=== PATIENT | female | born 1960 | race Caucasian/White ===

== ENCOUNTER 2023-12-13 03:46 | Inpatient (IN) | payer OTHER, BC ==
[2023-12-13 05:48] LABS: VENOUS BASE EXCESS -4.1 mmol/L (-2-2); VENOUS O2 SATURATION 73.3 % (70-80); VENOUS PCO2 37.4 mmHg (38-52); VENOUS PH 7.365 (7.310-7.410)
[2023-12-13 05:56] LABS: EPI CELLS 10 /uL (0-25.1); HYALINE CASTS 0 /uL (0-3.1); PH,URINE 6.5 (5.0-8.0); URINE APPEARANCE CLEAR; URINE BACTERIA 14 /uL (0-1359); URINE BILIRUBIN NEGATIVE (NEGATIVE); URINE COLOR YELLOW; URINE GLUCOSE (UA) NEGATIVE (NEGATIVE); URINE KETONE NEGATIVE (NEGATIVE); URINE LEUK ESTERASE TRACE (NEGATIVE); URINE NITRITE NEGATIVE (NEGATIVE); URINE PROTEIN NEGATIVE (NEGATIVE); URINE RBC 10 /uL (0-23.9); URINE UROBILINOGEN 0.2 mg/dL (0.2-1.0); URINE WBC 12 /uL (0-25.8)
[2023-12-13 06:03] LABS: INR 1.33 (0.83-1.09); PROTHROMBIN TIME (PATIENT) 15.4 SEC (9.7-13.0)
[2023-12-13 06:05] LABS: HEMATOCRIT 23.2 % (32.4-45.2); HEMOGLOBIN 7.8 GM/dL (10.7-15.3); MCH 34.2 pg (25.7-33.7); MCHC 33.7 g/dl (32.0-36.0); MEAN CELL VOLUME 101.5 fl (80-96); MEAN PLT VOLUME 7.5 fl (7.5-11.1); PLATELET COUNT 71 10^3/uL (134-434); RBC 2.28 M/mm3 (3.60-5.2); RDW 22.1 % (11.6-15.6)
[2023-12-13 06:06] LABS: ACTIVATED PTT 32.3 SECONDS (25.2-36.5)
[2023-12-13 06:18] LABS: WHITE BLOOD COUNT 1.6 K/mm3 (4.0-10.0)
[2023-12-13] MEDS ORDERED: ACETAMINOPHEN INJECTION 100 ML IVPB ONE (06:48)
[2023-12-13] MEDS: ACETAMINOPHEN 1000 MG/100 ML BAG IVPB ONE (06:56)
[2023-12-13] MEDS: SODIUM CHLORIDE 0.9% 500 ML INFUS.BAG IV ONE (06:56)
[2023-12-13 08:27] LABS: POTASSIUM 4.2 mmol/L (3.5-5.1)
[2023-12-13 08:28] LABS: CALCIUM 8.7 mg/dL (8.5-10.1)
[2023-12-13 08:30] LABS: ALBUMIN 2.1 g/dl (3.4-5.0)
[2023-12-13 08:33] LABS: CREATININE 0.7 mg/dL (0.55-1.3)
[2023-12-13 08:34] LABS: TOT PROT 7.8 g/dl (6.4-8.2)
[2023-12-13 08:36] LABS: BILIRUBIN,TOTAL 0.6 mg/dL (0.2-1)
[2023-12-13 08:41] LABS: ANISOCYTOSIS 1+; MACROCYTOSIS 1+
[2023-12-13] MEDS ORDERED: PIPERACILLIN/TAZOB 4.5 GM 4.5 GM/100 ML BAG IVPB ONE (09:41)
[2023-12-13] MEDS: PIPERACILLIN/TAZOB 4.5 GM 4.5 GM in DEXTROSE 5%-WATER 100 ML IVPB ONE (10:57)
[2023-12-13] MEDS: DEXTROSE 5%-0.45% SALINE 1,000 ML IV SCH (18:21)
[2023-12-13] MEDS: PIPERACILLIN/TAZOB 3.375 GM 3.375 GM in DEXTROSE 5%-WATER - 50 ML IVPB SCH (18:22)
[2023-12-14 09:36] LABS: HEMATOCRIT 21.7 % (32.4-45.2); MCH 33.2 pg (25.7-33.7); MCHC 32.4 g/dl (32.0-36.0); MEAN CELL VOLUME 102.5 fl (80-96); MEAN PLT VOLUME 7.6 fl (7.5-11.1); PLATELET COUNT 78 10^3/uL (134-434); RBC 2.12 M/mm3 (3.60-5.2); RDW 22.2 % (11.6-15.6)
[2023-12-14 09:41] LABS: WHITE BLOOD COUNT 1.5 K/mm3 (4.0-10.0)
[2023-12-14 09:46] LABS: POTASSIUM 3.2 mmol/L (3.5-5.1)
[2023-12-14 09:54] LABS: CALCIUM 8.4 mg/dL (8.5-10.1)
[2023-12-14 09:58] LABS: CREATININE 0.8 mg/dL (0.55-1.3); TOT PROT 6.9 g/dl (6.4-8.2)
[2023-12-14 09:59] LABS: BILIRUBIN,TOTAL 0.4 mg/dL (0.2-1)
[2023-12-14 10:40] LABS: ANISOCYTOSIS 3+; MACROCYTOSIS 1+
[2023-12-14] MEDS: TBO-FILGRASTIM 300 MCG/0.5 ML DISP.SYRINGE SQ ONE (11:59)
[2023-12-14] MEDS: ACETAMINOPHEN 325 MG TABLET (FP) PO PRN (15:56)
[2023-12-15 08:55] LABS: HEMATOCRIT 23.4 % (32.4-45.2); HEMOGLOBIN 7.6 GM/dL (10.7-15.3); MCH 33.7 pg (25.7-33.7); MCHC 32.4 g/dl (32.0-36.0); MEAN CELL VOLUME 103.9 fl (80-96); MEAN PLT VOLUME 8.1 fl (7.5-11.1); PLATELET COUNT 82 10^3/uL (134-434); RBC 2.25 M/mm3 (3.60-5.2); RDW 23.1 % (11.6-15.6); WHITE BLOOD COUNT 2.4 K/mm3 (4.0-10.0)
[2023-12-15 09:20] LABS: CALCIUM 8.7 mg/dL (8.5-10.1)
[2023-12-15 09:21] LABS: BLOOD UREA NITROGEN 13.4 mg/dL (7-18)
[2023-12-15 09:24] LABS: CREATININE 0.7 mg/dL (0.55-1.3)
[2023-12-15 09:25] LABS: BILIRUBIN,TOTAL 0.4 mg/dL (0.2-1)
[2023-12-15 09:26] LABS: TOT PROT 7.1 g/dl (6.4-8.2)
[2023-12-15] MEDS: ASCORBIC ACID 250 MG TABLET (FP) PO SCH (09:53)
[2023-12-15] MEDS: MULTIVITAMINS (DAILY MVI) TABLET (FP) PO SCH (09:53)
[2023-12-15 10:39] LABS: ANISOCYTOSIS 2+; MACROCYTOSIS 1+
[2023-12-15] MEDS: TBO-FILGRASTIM 300 MCG/0.5 ML DISP.SYRINGE SQ ONE ×2 (14:04→15:15)
[2023-12-15] MEDS: DOCUSATE SODIUM 100 MG CAPSULE (FP) PO SCH (21:44)
[2023-12-16 10:03] LABS: HEMATOCRIT 22.2 % (32.4-45.2); HEMOGLOBIN 7.3 GM/dL (10.7-15.3); MCH 34.2 pg (25.7-33.7); MEAN CELL VOLUME 103.5 fl (80-96); MEAN PLT VOLUME 8.3 fl (7.5-11.1); PLATELET COUNT 87 10^3/uL (134-434); RBC 2.15 M/mm3 (3.60-5.2); RDW 22.6 % (11.6-15.6)
[2023-12-16 10:07] LABS: WHITE BLOOD COUNT 1.7 K/mm3 (4.0-10.0)
[2023-12-16 10:28] LABS: POTASSIUM 3.6 mmol/L (3.5-5.1)
[2023-12-16 10:32] LABS: BLOOD UREA NITROGEN 11.2 mg/dL (7-18); CALCIUM 8.7 mg/dL (8.5-10.1)
[2023-12-16 10:33] LABS: ALBUMIN 1.9 g/dl (3.4-5.0)
[2023-12-16 10:35] LABS: CREATININE 0.7 mg/dL (0.55-1.3)
[2023-12-16 10:38] LABS: TOT PROT 6.9 g/dl (6.4-8.2)
[2023-12-16 10:39] LABS: BILIRUBIN,TOTAL 0.4 mg/dL (0.2-1)
[2023-12-16 11:32] LABS: ANISOCYTOSIS 0; HELMET CELLS 0; HOWELL-JOLLY BODIES 0; MACROCYTOSIS 0; OVALOCYTE 0; ROULEAU 0; SICKELED CELLS 0; TARGET CELLS 0; TEAR DROP CELLS 0; TOXIC GRANULATION 0
[2023-12-16] MEDS: TBO-FILGRASTIM 300 MCG/0.5 ML DISP.SYRINGE SQ ONE (17:31)
[2023-12-16] MEDS: AMINO ACIDS/PROTEIN HYDROLYS 30 ML LIQUID.PKT PO SCH (17:47)
[2023-12-16 23:59] VITALS: BMI 21.6
[2023-12-17] MEDS: SODIUM CHLORIDE 250 ML IV STA (06:02)
[2023-12-17 08:35] LABS: CREATININE 0.7 mg/dL (0.55-1.3)
[2023-12-17 08:36] LABS: BLOOD UREA NITROGEN 14.9 mg/dL (7-18); CALCIUM 9.2 mg/dL (8.5-10.1)
[2023-12-17 08:37] LABS: BILIRUBIN,TOTAL 0.5 mg/dL (0.2-1); TOT PROT 7.2 g/dl (6.4-8.2)
[2023-12-17 08:42] LABS: HEMATOCRIT 23.8 % (32.4-45.2); HEMOGLOBIN 7.8 GM/dL (10.7-15.3); MCH 34.1 pg (25.7-33.7); MCHC 32.9 g/dl (32.0-36.0); MEAN CELL VOLUME 103.6 fl (80-96); MEAN PLT VOLUME 8.5 fl (7.5-11.1); PLATELET COUNT 92 10^3/uL (134-434); RDW 23.4 % (11.6-15.6)
[2023-12-17 09:02] LABS: WHITE BLOOD COUNT 1.6 K/mm3 (4.0-10.0)
[2023-12-17] MEDS: POLYETHYLENE GLYCOL (HEALTHYLAX) 3350 17 GM PACKET PO SCH (17:41)
[2023-12-17] MEDS: TBO-FILGRASTIM 300 MCG/0.5 ML DISP.SYRINGE SQ SCH (22:28)
[2023-12-18] MEDS ORDERED: TBO-FILGRASTIM 300 MCG/0.5 ML DISP.SYRINGE SQ SCH (11:30)
[2023-12-18 12:07] LABS: HEMATOCRIT 25.5 % (32.4-45.2); HEMOGLOBIN 8.5 GM/dL (10.7-15.3); MCH 34.3 pg (25.7-33.7); MCHC 33.2 g/dl (32.0-36.0); MEAN CELL VOLUME 103.2 fl (80-96); MEAN PLT VOLUME 8.3 fl (7.5-11.1); PLATELET COUNT 100 10^3/uL (134-434); RBC 2.47 M/mm3 (3.60-5.2); RDW 23.2 % (11.6-15.6); WHITE BLOOD COUNT 2.7 K/mm3 (4.0-10.0)
[2023-12-18 12:42] LABS: POTASSIUM 4.6 mmol/L (3.5-5.1)
[2023-12-18 12:49] LABS: CALCIUM 8.6 mg/dL (8.5-10.1)
[2023-12-18 12:50] LABS: ALBUMIN 2.1 g/dl (3.4-5.0); BLOOD UREA NITROGEN 19.5 mg/dL (7-18)
[2023-12-18 12:53] LABS: CREATININE 0.7 mg/dL (0.55-1.3)
[2023-12-18 12:54] LABS: BILIRUBIN,TOTAL 0.5 mg/dL (0.2-1); TOT PROT 7.3 g/dl (6.4-8.2)
[2023-12-18 13:04] LABS: ANISOCYTOSIS 2+; MACROCYTOSIS 1+; TEAR DROP CELLS 1+
[2023-12-18] MEDS: VANCOMYCIN/WATER FOR INJ (PEG) 1,000 MG/200 ML BAG IVPB SCH (15:16)
[2023-12-18] MEDS: TBO-FILGRASTIM 300 MCG/0.5 ML DISP.SYRINGE SQ SCH (15:16)
[2023-12-19 09:33] LABS: HEMATOCRIT 24.9 % (32.4-45.2); HEMOGLOBIN 8.1 GM/dL (10.7-15.3); MCH 33.7 pg (25.7-33.7); MCHC 32.7 g/dl (32.0-36.0); MEAN CELL VOLUME 103.3 fl (80-96); MEAN PLT VOLUME 8.8 fl (7.5-11.1); PLATELET COUNT 86 10^3/uL (134-434); RBC 2.41 M/mm3 (3.60-5.2); RDW 23.4 % (11.6-15.6); WHITE BLOOD COUNT 2.8 K/mm3 (4.0-10.0)
[2023-12-19 10:04] LABS: CALCIUM 8.7 mg/dL (8.5-10.1)
[2023-12-19 10:05] LABS: BLOOD UREA NITROGEN 22.3 mg/dL (7-18)
[2023-12-19 10:08] LABS: CREATININE 0.8 mg/dL (0.55-1.3)
[2023-12-19 10:09] LABS: BILIRUBIN,TOTAL 0.5 mg/dL (0.2-1); TOT PROT 7.3 g/dl (6.4-8.2)
[2023-12-19 10:11] LABS: ANISOCYTOSIS 1+; MACROCYTOSIS 1+
[2023-12-20 08:00] LABS: HEMATOCRIT 24.8 % (32.4-45.2); HEMOGLOBIN 8.1 GM/dL (10.7-15.3); MCH 33.9 pg (25.7-33.7); MCHC 32.7 g/dl (32.0-36.0); MEAN CELL VOLUME 103.8 fl (80-96); MEAN PLT VOLUME 8.8 fl (7.5-11.1); PLATELET COUNT 72 10^3/uL (134-434); RBC 2.39 M/mm3 (3.60-5.2); RDW 23.1 % (11.6-15.6); WHITE BLOOD COUNT 2.8 K/mm3 (4.0-10.0)
[2023-12-20 08:29] LABS: POTASSIUM 4.2 mmol/L (3.5-5.1)
[2023-12-20 08:34] LABS: CALCIUM 8.9 mg/dL (8.5-10.1)
[2023-12-20 08:35] LABS: ALBUMIN 2.1 g/dl (3.4-5.0); BLOOD UREA NITROGEN 17.7 mg/dL (7-18)
[2023-12-20 08:38] LABS: CREATININE 0.5 mg/dL (0.55-1.3)
[2023-12-20 08:39] LABS: BILIRUBIN,TOTAL 0.4 mg/dL (0.2-1); TOT PROT 7.6 g/dl (6.4-8.2)
[2023-12-20 09:20] LABS: ANISOCYTOSIS 1+; MACROCYTOSIS 1+
[2023-12-21 09:55] LABS: HEMOGLOBIN 7.2 GM/dL (10.7-15.3); MCH 33.9 pg (25.7-33.7); MCHC 32.9 g/dl (32.0-36.0); MEAN PLT VOLUME 8.6 fl (7.5-11.1); PLATELET COUNT 62 10^3/uL (134-434); RBC 2.14 M/mm3 (3.60-5.2); WHITE BLOOD COUNT 2.6 K/mm3 (4.0-10.0)
[2023-12-21 10:11] LABS: POTASSIUM 3.4 mmol/L (3.5-5.1)
[2023-12-21 10:15] LABS: BLOOD UREA NITROGEN 16.8 mg/dL (7-18); CALCIUM 8.4 mg/dL (8.5-10.1)
[2023-12-21 10:17] LABS: ANISOCYTOSIS 0; MACROCYTOSIS 1+
[2023-12-21 10:19] LABS: CREATININE 0.7 mg/dL (0.55-1.3)
[2023-12-21 10:20] LABS: BILIRUBIN,TOTAL 0.4 mg/dL (0.2-1); TOT PROT 6.9 g/dl (6.4-8.2)
[2023-12-21] MEDS: POTASSIUM CHLORIDE ORAL LIQUID 20 MEQ/15 ML PO ONE (12:15)
[2023-12-21] MEDS: LINEZOLID 600 MG TABLET (RESTRICTED TO ID) PO SCH (13:15)
[2023-12-22 09:29] LABS: HEMATOCRIT 23.3 % (32.4-45.2); HEMOGLOBIN 7.6 GM/dL (10.7-15.3); MCH 33.6 pg (25.7-33.7); MCHC 32.7 g/dl (32.0-36.0); MEAN CELL VOLUME 102.8 fl (80-96); PLATELET COUNT 69 10^3/uL (134-434); RBC 2.27 M/mm3 (3.60-5.2); RDW 23.2 % (11.6-15.6); WHITE BLOOD COUNT 4.7 K/mm3 (4.0-10.0)
[2023-12-22 09:48] LABS: POTASSIUM 4.1 mmol/L (3.5-5.1)
[2023-12-22 10:03] LABS: CALCIUM 8.5 mg/dL (8.5-10.1)
[2023-12-22 10:04] LABS: ALBUMIN 2.2 g/dl (3.4-5.0); BLOOD UREA NITROGEN 15.5 mg/dL (7-18)
[2023-12-22 10:07] LABS: CREATININE 0.6 mg/dL (0.55-1.3)
[2023-12-22 10:08] LABS: BILIRUBIN,TOTAL 0.5 mg/dL (0.2-1); TOT PROT 7.2 g/dl (6.4-8.2)
[2023-12-22 10:35] LABS: ANISOCYTOSIS 2+; MACROCYTOSIS 2+
[2023-12-23 11:30] VITALS: RESP 18
[2023-12-25] MEDS: ACETAMINOPHEN 500 MG TABLET (FP) PO ONE (06:33)
[2023-12-25 09:13] LABS: HEMATOCRIT 23.8 % (32.4-45.2); HEMOGLOBIN 7.9 GM/dL (10.7-15.3); MCH 33.7 pg (25.7-33.7); MCHC 33.3 g/dl (32.0-36.0); MEAN CELL VOLUME 101.2 fl (80-96); MEAN PLT VOLUME 7.3 fl (7.5-11.1); PLATELET COUNT 75 10^3/uL (134-434); RBC 2.35 M/mm3 (3.60-5.2); RDW 22.6 % (11.6-15.6)
[2023-12-25 09:18] LABS: WHITE BLOOD COUNT 1.9 K/mm3 (4.0-10.0)
[2023-12-25 09:24] LABS: POTASSIUM 3.8 mmol/L (3.5-5.1)
[2023-12-25 09:28] LABS: ALBUMIN 2.2 g/dl (3.4-5.0); CALCIUM 8.4 mg/dL (8.5-10.1)
[2023-12-25 09:29] LABS: BLOOD UREA NITROGEN 17.2 mg/dL (7-18)
[2023-12-25 09:31] LABS: CREATININE 0.5 mg/dL (0.55-1.3)
[2023-12-25 09:33] LABS: BILIRUBIN,TOTAL 0.4 mg/dL (0.2-1); TOT PROT 7.7 g/dl (6.4-8.2)
[2023-12-25 11:01] LABS: ANISOCYTOSIS 3+; MACROCYTOSIS 1+
[2023-12-25] MEDS: TBO-FILGRASTIM 300 MCG/0.5 ML DISP.SYRINGE SQ ONE (14:42)
[2023-12-26] MEDS: MELATONIN 1 MG TABLET PO ONE (02:22)
[2023-12-26] MEDS ORDERED: IOHEXOL (OMNIPAQUE PO) 12 MG/ML - 500 ML BOTTLE PO ONE (12:11)
[2023-12-26 12:49] LABS: HEMOGLOBIN 7.3 GM/dL (10.7-15.3); MCH 33.8 pg (25.7-33.7); MEAN CELL VOLUME 102.4 fl (80-96); MEAN PLT VOLUME 7.1 fl (7.5-11.1); PLATELET COUNT 71 10^3/uL (134-434); RBC 2.15 M/mm3 (3.60-5.2); RDW 21.7 % (11.6-15.6); WHITE BLOOD COUNT 2.5 K/mm3 (4.0-10.0)
[2023-12-26 13:30] LABS: POTASSIUM 3.5 mmol/L (3.5-5.1)
[2023-12-26 13:32] LABS: BLOOD UREA NITROGEN 20.9 mg/dL (7-18); CALCIUM 8.4 mg/dL (8.5-10.1)
[2023-12-26 13:35] LABS: CREATININE 0.5 mg/dL (0.55-1.3)
[2023-12-26 13:37] LABS: BILIRUBIN,TOTAL 0.4 mg/dL (0.2-1); TOT PROT 7.3 g/dl (6.4-8.2)
[2023-12-27 10:09] LABS: HEMATOCRIT 21.3 % (32.4-45.2); MEAN PLT VOLUME 7.3 fl (7.5-11.1); PLATELET COUNT 75 10^3/uL (134-434); RBC 2.06 M/mm3 (3.60-5.2); RDW 22.1 % (11.6-15.6); WHITE BLOOD COUNT 2.3 K/mm3 (4.0-10.0)
[2023-12-27 10:22] LABS: POTASSIUM 3.6 mmol/L (3.5-5.1)
[2023-12-27 10:29] LABS: BLOOD UREA NITROGEN 18.3 mg/dL (7-18); CALCIUM 8.3 mg/dL (8.5-10.1)
[2023-12-27 10:32] LABS: CREATININE 0.6 mg/dL (0.55-1.3)
[2023-12-27 10:34] LABS: BILIRUBIN,TOTAL 0.4 mg/dL (0.2-1); TOT PROT 7.1 g/dl (6.4-8.2)
[2023-12-27 11:37] LABS: ANISOCYTOSIS 0; MACROCYTOSIS 0
[2023-12-27] MEDS: MELATONIN 1 MG TABLET PO PRN (22:35)
[2023-12-29 09:10] LABS: POTASSIUM 3.4 mmol/L (3.5-5.1)
[2023-12-29 09:13] LABS: HEMATOCRIT 21.6 % (32.4-45.2); HEMOGLOBIN 7.2 GM/dL (10.7-15.3); MCH 34.1 pg (25.7-33.7); MCHC 33.2 g/dl (32.0-36.0); MEAN CELL VOLUME 102.6 fl (80-96); MEAN PLT VOLUME 7.2 fl (7.5-11.1); PLATELET COUNT 74 10^3/uL (134-434); RBC 2.11 M/mm3 (3.60-5.2); RDW 22.3 % (11.6-15.6)
[2023-12-29 09:17] LABS: CALCIUM 8.6 mg/dL (8.5-10.1)
[2023-12-29 09:18] LABS: ALBUMIN 2.2 g/dl (3.4-5.0); BLOOD UREA NITROGEN 15.8 mg/dL (7-18)
[2023-12-29 09:21] LABS: CREATININE 0.5 mg/dL (0.55-1.3)
[2023-12-29 09:22] LABS: BILIRUBIN,TOTAL 0.4 mg/dL (0.2-1); TOT PROT 7.7 g/dl (6.4-8.2)
[2023-12-29 09:25] LABS: WHITE BLOOD COUNT 1.9 K/mm3 (4.0-10.0)
[2023-12-29 10:36] LABS: ANISOCYTOSIS 2+; MACROCYTOSIS 1+; OVALOCYTE 1+
[2023-12-29] MEDS: TBO-FILGRASTIM 300 MCG/0.5 ML DISP.SYRINGE SQ ONE (11:43)
[2023-12-29] MEDS: POTASSIUM CHLORIDE ORAL LIQUID 20 MEQ/15 ML PO ONE (11:43)
[2023-12-29] MEDS: AZTREONAM 1 GM in DEXTROSE 5%-WATER - 50 ML IVPB SCH (21:22)
[2023-12-29] MEDS: VANCOMYCIN/WATER FOR INJ (PEG) 1,000 MG/200 ML BAG IVPB SCH (22:52)
[2023-12-30] MEDS: ACETAMINOPHEN 1000 MG/100 ML BAG IVPB ONE (03:13)
[2023-12-30 09:56] LABS: HEMATOCRIT 20.8 % (32.4-45.2); MCH 34.2 pg (25.7-33.7); MCHC 33.3 g/dl (32.0-36.0); MEAN CELL VOLUME 102.7 fl (80-96); MEAN PLT VOLUME 7.7 fl (7.5-11.1); PLATELET COUNT 66 10^3/uL (134-434); RBC 2.02 M/mm3 (3.60-5.2); RDW 21.6 % (11.6-15.6)
[2023-12-30 10:03] LABS: HEMOGLOBIN 6.9 GM/dL (10.7-15.3); WHITE BLOOD COUNT 1.4 K/mm3 (4.0-10.0)
[2023-12-30 10:10] LABS: POTASSIUM 3.7 mmol/L (3.5-5.1)
[2023-12-30 10:18] LABS: CALCIUM 8.9 mg/dL (8.5-10.1)
[2023-12-30 10:19] LABS: ALBUMIN 2.1 g/dl (3.4-5.0); BLOOD UREA NITROGEN 14.9 mg/dL (7-18); MAGNESIUM 2.1 mg/dL (1.8-2.4)
[2023-12-30 10:22] LABS: CREATININE 0.5 mg/dL (0.55-1.3)
[2023-12-30 10:24] LABS: TOT PROT 7.5 g/dl (6.4-8.2)
[2023-12-30 10:25] LABS: BILIRUBIN,TOTAL 0.8 mg/dL (0.2-1)
[2023-12-30 10:43] LABS: ANISOCYTOSIS 0; HELMET CELLS 0; HOWELL-JOLLY BODIES 0; MACROCYTOSIS 0; OVALOCYTE 0; ROULEAU 0; SICKELED CELLS 0; TARGET CELLS 0; TEAR DROP CELLS 0; TOXIC GRANULATION 0
[2023-12-30] MEDS: FUROSEMIDE 40 MG/4 ML INJECTABLE VIAL IVPUSH ONE (11:33)
[2023-12-31 10:06] LABS: HEMATOCRIT 21.9 % (32.4-45.2); HEMOGLOBIN 7.2 GM/dL (10.7-15.3); MCHC 32.7 g/dl (32.0-36.0); MEAN CELL VOLUME 103.9 fl (80-96); PLATELET COUNT 67 10^3/uL (134-434); RBC 2.11 M/mm3 (3.60-5.2)
[2023-12-31 10:20] LABS: POTASSIUM 3.2 mmol/L (3.5-5.1)
[2023-12-31 10:22] LABS: WHITE BLOOD COUNT 1.2 K/mm3 (4.0-10.0)
[2023-12-31 10:26] LABS: CALCIUM 8.5 mg/dL (8.5-10.1)
[2023-12-31 10:27] LABS: ALBUMIN 2.1 g/dl (3.4-5.0); BLOOD UREA NITROGEN 16.8 mg/dL (7-18)
[2023-12-31 10:29] LABS: BILIRUBIN,TOTAL 0.4 mg/dL (0.2-1); TOT PROT 7.5 g/dl (6.4-8.2)
[2023-12-31 10:30] LABS: CREATININE 0.6 mg/dL (0.55-1.3)
[2023-12-31 10:55] LABS: ANISOCYTOSIS 2+; MACROCYTOSIS 0
[2023-12-31] MEDS: POTASSIUM CHLORIDE ORAL LIQUID 20 MEQ/15 ML PO ONE (12:51)
[2023-12-31] MEDS: TBO-FILGRASTIM 300 MCG/0.5 ML DISP.SYRINGE SQ ONE (13:57)
[2024-01-02 08:16] LABS: POTASSIUM 3.6 mmol/L (3.5-5.1)
[2024-01-02 08:19] LABS: HEMATOCRIT 20.8 % (32.4-45.2); MCH 34.5 pg (25.7-33.7); MCHC 33.2 g/dl (32.0-36.0); MEAN CELL VOLUME 103.8 fl (80-96); MEAN PLT VOLUME 6.9 fl (7.5-11.1); PLATELET COUNT 80 10^3/uL (134-434); RDW 22.6 % (11.6-15.6)
[2024-01-02 08:21] LABS: ALBUMIN 2.1 g/dl (3.4-5.0); CALCIUM 8.7 mg/dL (8.5-10.1)
[2024-01-02 08:24] LABS: BLOOD UREA NITROGEN 14.5 mg/dL (7-18)
[2024-01-02 08:26] LABS: CREATININE 0.4 mg/dL (0.55-1.3)
[2024-01-02 08:27] LABS: BILIRUBIN,TOTAL 0.5 mg/dL (0.2-1); TOT PROT 7.4 g/dl (6.4-8.2)
[2024-01-02 08:33] LABS: WHITE BLOOD COUNT 1.6 K/mm3 (4.0-10.0)
[2024-01-02 08:34] LABS: HEMOGLOBIN 6.9 GM/dL (10.7-15.3)
[2024-01-02 09:26] LABS: ANISOCYTOSIS 2+; MACROCYTOSIS 1+
[2024-01-02] MEDS: TBO-FILGRASTIM 300 MCG/0.5 ML DISP.SYRINGE SQ ONE (17:14)
[2024-01-03 02:45] VITALS: BP 119/67; PULSE 89; TEMP 98.9
[2024-01-03 08:08] LABS: HEMATOCRIT 21.3 % (32.4-45.2); MCH 34.6 pg (25.7-33.7); MCHC 33.1 g/dl (32.0-36.0); MEAN CELL VOLUME 104.7 fl (80-96); MEAN PLT VOLUME 6.8 fl (7.5-11.1); PLATELET COUNT 84 10^3/uL (134-434); RBC 2.03 M/mm3 (3.60-5.2); RDW 23.3 % (11.6-15.6)
[2024-01-03 08:22] LABS: POTASSIUM 3.7 mmol/L (3.5-5.1)
[2024-01-03 08:27] LABS: CALCIUM 8.7 mg/dL (8.5-10.1)
[2024-01-03 08:28] LABS: ALBUMIN 2.2 g/dl (3.4-5.0)
[2024-01-03 08:31] LABS: CREATININE 0.4 mg/dL (0.55-1.3)
[2024-01-03 08:32] LABS: BILIRUBIN,TOTAL 0.5 mg/dL (0.2-1); TOT PROT 7.6 g/dl (6.4-8.2)
[2024-01-03 08:59] LABS: ANISOCYTOSIS 1+; MACROCYTOSIS 1+
[2024-01-03] MEDS ORDERED: IRON SUCROSE INJECTION 100 MG in SODIUM CHLORIDE 95 ML IVPB ONE ×2 (11:00→12:00)
== END 2024-01-03 11:15 | DRG 809 ==
LOC: JER 03:46 → JERBED 11:37 → J6S 12-14 00:57
PROVIDERS: ADMIT Internal Medicine; ATTEND Internal Medicine
DX: D70.9 Neutropenia, unspecified (principal); C91.50 Adult T-cell lymphoma/leukemia (HTLV-1-associated) not having achieved remission; E46 Unspecified protein-calorie malnutrition; R50.81 Fever presenting with conditions classified elsewhere; M06.9 Rheumatoid arthritis, unspecified; C53.9 Malignant neoplasm of cervix uteri, unspecified; D61.818 Other pancytopenia; F22 Delusional disorders; Z68.21 Body mass index [BMI] 21.0-21.9, adult
CPT/HCPCS: 0241U-QW; 36415; 70450-TC; 71045-TC-FY; 71250-TC; 74177-TC; 76856-TC; 80053; 81003; 82550; 82728; 82803; 83540; 83550; 83605; 83735; 84466; 84484; 85025; 85610; 85730; 86850; 86900; 86901; 86922; 87040; 87086; 87186; 88300-TC; 93005; 93010; 97116-GP; 97162-GP; 99285-25; J0131; J1447; Q9967